=== PATIENT | female | born 1990 | race Caucasian/White ===

== ENCOUNTER 2021-12-26 16:38 | Observation (INO) ==
[2021-12-26 17:53] LABS: Rapid COVID-19 Molecular Undetected (Undetected)
[2021-12-26] MEDS ORDERED: Propofol 10 MG/ML 20 ML BTL ONE ×2 (17:56→19:07)
[2021-12-26] MEDS ORDERED: Rocuronium 50 mg VIAL 10 mg/ml 5 ml VIAL (50 mg) ONE (17:56)
[2021-12-26] MEDS ORDERED: Lidocaine 2% PF 5 ML VIAL ONE (17:56)
[2021-12-26] MEDS ORDERED: fentaNYL 250 mcg/5 ml 50 MCG/ML 5 ml VIAL (250 MCG) ONE (17:59)
[2021-12-26] MEDS ORDERED: Midazolam 5 mg/5 ml VIAL 1 mg/ml 5 ml VIAL (5 mg) ONE ×2 (17:59→18:10)
[2021-12-26] MEDS ORDERED: Bupivacaine 0.5% 50 ML MDV VIAL ONE (18:08)
[2021-12-26] MEDS ORDERED: Phenylephrine 40 mcg/mL 10mL (400mcg) SYRINGE ONE (19:01)
[2021-12-26] MEDS ORDERED: Dexmedetomidine 200 mcg/2 ml 2 ml VIAL (200 mcg) ONE (19:04)
[2021-12-26] MEDS ORDERED: EPHEDrine (Pressors) 50 MG/ML VIAL ONE (19:11)
[2021-12-26] MEDS ORDERED: Naloxone 0.4 mg VIAL 0.4 mg/ml 1 ml VIAL IV PRN (19:30)
[2021-12-26] MEDS ORDERED: Ondansetron 4 mg VIAL 2 MG/ML 2 ml VIAL IV PRN (19:30)
[2021-12-26] MEDS ORDERED: HYDROmorphone 1 MG/1 ML SYRINGE ONE (20:29)
[2021-12-26] MEDS: HYDROmorphone 1 MG/1 ML SYRINGE IV PRN ×5 (20:30→20:50)
[2021-12-26 20:37] LABS: Hematocrit 36 % (35-47); Hemoglobin 12.3 g/dL (12.0-16.0); Mean Corpuscular HGB Conc 34 g/dL (31-36); Mean Corpuscular Hemoglobin 32 pg (27-31); Mean Corpuscular Volume 95 fL (80-97); Red Blood Count 3.83 10^6 /uL (3.70-4.87); Red Cell Distribution Width 12 % (10-15)
[2021-12-26 20:40] LABS: ALT 12 U/L (7-52); Albumin 4.2 g/dL (3.2-5.2); Albumin/Globulin Ratio 2.3 (1-3); Alkaline Phosphatase 39 U/L (35-149); Blood Urea Nitrogen 18 mg/dL (6-24); CO2 Carbon Dioxide 18 mmol/L (22-32); Chloride 111 mmol/L (101-111); Globulin 1.8 g/dL (2-4); Glucose 85 mg/dL (70-100); Sodium 138 mmol/L (135-145); eGFR CKD-EPI 114.6 (>60)
[2021-12-26 21:01] LABS: Anion Gap 9 mmol/L (2-11)
[2021-12-26 21:14] LABS: ABS Eosinophils 0.1 10^3/ul (0-0.6); ABS Monocytes 0.4 10^3/ul (0-0.8); ABS Neutrophils 4.4 10^3/ul (1.5-7.7); Eosinophil % 2.1 %; Lymphocyte % 28.1 %; Platelet Count Platelets clumped. 10^3/uL (150-450)
[2021-12-27 05:58] LABS: ABS Eosinophils 0.2 10^3/ul (0-0.6); ABS Lymphocytes 1.8 10^3/ul (1.0-4.8); ABS Monocytes 0.4 10^3/ul (0-0.8); ABS Neutrophils 3.7 10^3/ul (1.5-7.7); Eosinophil % 2.7 %; Hematocrit 38 % (35-47); Hemoglobin 12.7 g/dL (12.0-16.0); Lymphocyte % 28.9 %; Mean Corpuscular HGB Conc 34 g/dL (31-36); Mean Corpuscular Hemoglobin 32 pg (27-31); Mean Corpuscular Volume 95 fL (80-97); Mean Platelet Volume 10.2 fL (7.4-10.4); Platelet Count 163 10^3/uL (150-450); Red Blood Count 3.98 10^6 /uL (3.70-4.87); Red Cell Distribution Width 12 % (10-15); White Blood Count 6.1 10^3/uL (3.5-10.8)
[2021-12-27 06:18] LABS: Potassium Redraw 3.6 mmol/L (3.5-5.0)
[2021-12-27 06:19] LABS: Calcium 8.8 mg/dL (8.6-10.3); Potassium 3.6 mmol/L (3.5-5.0); Total Bilirubin 0.3 mg/dL (0.2-1.0)
[2021-12-27 06:25] LABS: Albumin/Globulin Ratio 2.7 (1-3); Globulin 1.5 g/dL (2-4); Total Protein 5.5 g/dL (6.4-8.9)
[2021-12-27] MEDS ORDERED: LORATADINE 10 MG PO PRN (07:59)
[2021-12-27] MEDS ORDERED: SUMATRIPTAN SUCCINATE 100 MG PO SCH (09:00)
[2021-12-27 09:50] LABS: HIV 4th Generation Nonreactive (Nonreactive)
[2021-12-27] MEDS ORDERED: NS 0.9% 1000 ml BAG 1,000 ML IV ONE (14:37)
[2021-12-27] MEDS ORDERED: Benzocaine/Menthol LOZ PO PRN (19:17)
[2021-12-28 11:21] VITALS: BP 101/59
== END 2021-12-28 12:08 | disposition home or self-care (01) ==
LOC: OR 16:38 → SSU 21:57 → INTOOBSV 21:57
PROVIDERS: ADMIT Obstetrics & Gynecology; ATTEND Obstetrics & Gynecology